=== PATIENT | male | born 1965 | race Caucasian/White ===

== ENCOUNTER 2017-05-24 08:51 | Day surgery (SDC) | payer MEDICAID ==
[2017-05-23 09:48] LABS: BASOPHILS # (AUTO) 0.1 X10'3 (0-0.2); BASOPHILS % (AUTO) 0.6 % (0-1); EOSINOPHILS # (AUTO) 0.2 X10'3 (0-0.9); EOSINOPHILS % (AUTO) 2.4 % (0-6); HEMATOCRIT 40.7 % (42.0-52.0); HEMOGLOBIN 14.1 g/dl (14.0-17.9); LYMPHOCYTES # (AUTO) 1.5 X10'3 (1.1-4.8); LYMPHOCYTES % (AUTO) 16.7 % (21-51); MEAN CORPUSCULAR HEMOGLOBIN 29.9 PG (27.0-31.0); MEAN CORPUSCULAR HGB CONC 34.5 % (33.0-36.5); MEAN CORPUSCULAR VOLUME 86.6 FL (78-98); MEAN PLATELET VOLUME 7.8 FL (7.4-10.4); MONOCYTES # (AUTO) 0.6 X10'3 (0-0.9); MONOCYTES % (AUTO) 6.7 % (2-12); NEUTROPHILS # (AUTO) 6.8 X10'3 (1.8-7.7); NEUTROPHILS % (AUTO) 73.6 % (42-75); PLATELET COUNT 216 X10'3 (140-440); RED CELL DISTRIBUTION WIDTH 16.2 % (11.5-14.5); WHITE BLOOD COUNT 9.2 X10'3 (4.5-11.0)
[2017-05-23 10:01] LABS: PARTIAL THROMBOPLASTIN TIME 26 SECONDS (22-32); PROTHROMBIN TIME 10.5 SECONDS (9.0-12.0)
[2017-05-23 10:06] LABS: ALANINE AMINOTRANSFERASE 42 U/L (12-78); ALBUMIN 3.7 G/DL (3.4-5.0); ALKALINE PHOSPHATASE 84 IU/L (46-116); ANION GAP 8 (8-16); ASPARTATE AMINO TRANSFERASE 25 U/L (10-37); BILIRUBIN,TOTAL 0.5 MG/DL (0.1-1.0); BLOOD UREA NITROGEN 18 MG/DL (7-18); BUN/CREATININE RATIO 15.5 (5.4-32.0); CALCIUM 8.8 MG/DL (8.5-10.1); CHLORIDE 102 MMOL/L (99-107); CREATININE 1.16 MG/DL (0.60-1.10); GLUCOSE 155 MG/DL (70-104); SODIUM 138 MMOL/L (135-145); TOTAL CARBON DIOXIDE 27.7 MMOL/L (24-32); TOTAL PROTEIN 7.5 G/DL (6.4-8.2); eGFR 66 ML/MIN
[2017-05-24] VITALS (12 sets, daily range): BP systolic 105–160; BP diastolic 69–92
[~2017-05-24] VITALS: Ht 177.8 cm; Wt 112.9 kg
[~2017-05-24 08:51] MED LIST: ATOR20TA66 PO; DILT180C95 PO; FENOFIBRATE PO; IBUP-1984 PO; OMEP20TA5 PO; PRAZOSIN; RISP2TAB97 PO; TRAZ-143 PO; VENL75CA55 PO
[2017-05-24] MEDS ORDERED: LORazepam 0.5 MG tablet PO PRN (09:15)
[2017-05-24] MEDS ORDERED: diphenhydrAMINE 25mg capsule PO PRN (09:15)
[2017-05-24] MEDS ORDERED: methylPREDNISolone sod succ 125mg/2ml vial IV ONE (09:15)
[2017-05-24] MEDS ORDERED: normal saline 1000ml 1,000 ML IV SCH (09:15)
[2017-05-24] MEDS ORDERED: nitroGLYCERIN 0.4mg SUBLingual tab SL PRN (09:15)
[2017-05-24] MEDS ORDERED: PRAZ1CAP5 PO (10:47)
[2017-05-24] MEDS ORDERED: FENO200C PO (10:52)
[2017-05-24] MEDS ORDERED: BUPR150T8 PO (10:52)
[2017-05-24] MEDS ORDERED: OMEP40CA37 PO (10:52)
[2017-05-24] MEDS ORDERED: POTA10TA19 PO (10:52)
[2017-05-24] MEDS ORDERED: EPIN0.3P8 IM (10:52)
[2017-05-24] MEDS ORDERED: FURO-150 PO (10:52)
[2017-05-24] MEDS ORDERED: PRE5T PO (10:52)
[2017-05-24] MEDS ORDERED: fentaNYL/PF 50MCG/1 ML 2ML syringe ONE (13:58)
[2017-05-24] MEDS ORDERED: midazolam 2 mg/2 ml injection ONE (13:58)
[2017-05-24] MEDS ORDERED: iohexol 350MG/ML 100ml bottle IV ONE (13:59)
[2017-05-24] MEDS ORDERED: iohexol 350 MG/ML 50ML vial IV ONE (13:59)
[2017-05-24] MEDS ORDERED: LIDOcaine 1%/PF (10mg/ml) 5ml vial ONE (13:59)
[2017-05-24] MEDS ORDERED: proCHLORperazine 10 MG/2 ml inj ONE (14:22)
[2017-05-24] MEDS ORDERED: HYDROmorphone 1 mg/ml syringe ONE (14:30)
[2017-05-24] MEDS ORDERED: HYDROcodone/acetaminophen 10/325mg tab PO PRN (16:00)
[2017-05-24] MEDS ORDERED: proCHLORperazine 10 MG/2 ml inj IV PRN (16:00)
[2017-05-24] MEDS ORDERED: OXAZEpam 15mg capsule PO PRN (16:00)
[2017-05-24] MEDS ORDERED: acetaminophen 325mg tablet PO PRN (16:00)
[2017-05-24] MEDS ORDERED: ondansetron/PF 4mg/2ml inj IV PRN (16:00)
[2017-05-24] MEDS ORDERED: HYDROcodone/acetaminophen 5mg/325mg tablet PO PRN (16:00)
== END 2017-05-24 20:00 | disposition home or self-care (01) ==
LOC: SSTAY O 08:51
PROVIDERS: ATTEND Internal Medicine Cardiovascular Disease
DX: I25.118 Atherosclerotic heart disease of native coronary artery with other forms of angina pectoris (principal); I10 Essential (primary) hypertension; E78.5 Hyperlipidemia, unspecified; J98.4 Other disorders of lung; F32.9 Major depressive disorder, single episode, unspecified; G89.4 Chronic pain syndrome; F17.210 Nicotine dependence, cigarettes, uncomplicated; K21.9 Gastro-esophageal reflux disease without esophagitis; Z90.89 Acquired absence of other organs; Z72.89 Other problems related to lifestyle; Z79.1 Long term (current) use of non-steroidal anti-inflammatories (NSAID); Z79.899 Other long term (current) drug therapy; Z91.013 Allergy to seafood; Z91.048 Other nonmedicinal substance allergy status; Z88.1 Allergy status to other antibiotic agents; Z88.8 Allergy status to other drugs, medicaments and biological substances
CPT/HCPCS: 36415; 71046; 80053; 85025; 85610; 85730; 93458; 99152; 99153; C1760; C1769; J0780; J1170; J2001; J2250; J2930; J3010; J7030; Q0163; Q9967; A4620

== ENCOUNTER 2018-03-08 16:59 | Emergency (ER) | payer MEDICAID ==
[~2018-03-08] VITALS: Ht 177.8 cm; Wt 111.0 kg
[~2018-03-08 16:59] MED LIST changes: +BUPR150T8 PO; +EPIN0.3P8 IM; +FENO200C PO; -FENOFIBRATE PO; +FURO-150 PO; +OMEP40CA37 PO; +POTA10TA19 PO; +PRAZ1CAP5 PO; -PRAZOSIN; +PRE5T PO; -RISP2TAB97 PO; -TRAZ-143 PO; +TRAZ-218 PO; -VENL75CA55 PO
[2018-03-08] MEDS ORDERED: normal saline 1000ML IV soln IVB ONE ×2 (17:55→21:40)
[2018-03-08 18:30] LABS: BASOPHILS # (AUTO) 0.1 X10'3 (0-0.2); BASOPHILS % (AUTO) 0.3 % (0-1); EOSINOPHILS # (AUTO) 0.4 X10'3 (0-0.9); EOSINOPHILS % (AUTO) 2.1 % (0-6); HEMOGLOBIN 14.6 g/dl (14.0-17.9); LYMPHOCYTES # (AUTO) 0.7 X10'3 (1.1-4.8); LYMPHOCYTES % (AUTO) 3.4 % (21-51); MEAN CORPUSCULAR HEMOGLOBIN 29.4 PG (27.0-31.0); MEAN CORPUSCULAR HGB CONC 32.4 % (33.0-36.5); MEAN CORPUSCULAR VOLUME 90.8 FL (78-98); MEAN PLATELET VOLUME 7.5 FL (7.4-10.4); MONOCYTES # (AUTO) 0.9 X10'3 (0-0.9); MONOCYTES % (AUTO) 4.4 % (2-12); NEUTROPHILS # (AUTO) 18.9 X10'3 (1.8-7.7); NEUTROPHILS % (AUTO) 89.8 % (42-75); PLATELET COUNT 263 X10'3 (140-440); RED BLOOD COUNT 4.96 X10'6 (4.70-6.10); RED CELL DISTRIBUTION WIDTH 14.3 % (11.5-14.5); WHITE BLOOD COUNT 21.1 X10'3 (4.5-11.0)
[2018-03-08 18:53] LABS: ALANINE AMINOTRANSFERASE 38 U/L (12-78); ALBUMIN 3.5 G/DL (3.4-5.0); ALBUMIN/GLOBULIN RATIO 0.8 (1.1-1.5); ALKALINE PHOSPHATASE 83 IU/L (46-116); ANION GAP 15 (8-16); ASPARTATE AMINO TRANSFERASE 38 U/L (10-37); BILIRUBIN,TOTAL 0.3 MG/DL (0.1-1.0); BLOOD UREA NITROGEN 9 MG/DL (7-18); BUN/CREATININE RATIO 9.3 (5.4-32.0); CALCIUM 8.5 MG/DL (8.5-10.1); CHLORIDE 101 MMOL/L (99-107); CREATININE 0.97 MG/DL (0.60-1.10); ETHANOL 0.131 GM/DL (0.0-0.010); GLUCOSE 119 MG/DL (70-104); POTASSIUM 3.4 MMOL/L (3.5-5.1); SODIUM 138 MMOL/L (135-145); TOTAL CARBON DIOXIDE 22.3 MMOL/L (24-32); TOTAL PROTEIN 7.8 G/DL (6.4-8.2); eGFR 81 ML/MIN
[2018-03-08 22:13] LABS: LIPASE 140 U/L (73-393)
[2018-03-08 23:33] LABS: CLARITY,URINE CLEAR (Clear); COLOR,URINE YELLOW (Yellow); GLUCOSE, URINE NEGATIVE (Neg); KETONES,URINE NEGATIVE (Neg); LEUKOCYTE ESTERASE ,URINE NEGATIVE (Neg); NITRITES, URINE NEGATIVE (Neg); OCCULT BLOOD,URINE LARGE (Neg); PROTEIN,URINE NEGATIVE (Neg); UROBILINOGEN,URINE 0.2 E.U/dL (0.2-1.0)
[2018-03-08 23:35] LABS: UA COLLECTION TYPE URINAL
[2018-03-08 23:40] LABS: SQUAMOUS EPITHELIAL CELL,UR MODERATE /LPF (FEW)
[2018-03-08 23:41] LABS: BACTERIA,URINE FEW /HPF (Neg); MUCUS STRANDS MODERATE /LPF (Neg); RBC,URINE 50-100 /HPF (0-2); WBC,URINE 0-4 /HPF (0-4)
[2018-03-08 23:44] LABS: URINE AMPHETAMINE SCREEN NEGATIVE (Neg); URINE BARBITUATE SCREEN NEGATIVE (Neg); URINE BENZODIAZEPINES SCREEN POSITIVE (Neg); URINE CANNABINOID SCREEN NEGATIVE (Neg); URINE COCAINE SCREEN NEGATIVE (Neg); URINE METHADONE SCREEN NEGATIVE (Neg); URINE OPIATE SCREEN NEGATIVE (Neg); URINE PHENCYCLIDINE SCREEN NEGATIVE (Neg)
[2018-03-09 00:08] LABS: BASOPHILS # (AUTO) 0.1 X10'3 (0-0.2); BASOPHILS % (AUTO) 0.9 % (0-1); EOSINOPHILS # (AUTO) 0.2 X10'3 (0-0.9); EOSINOPHILS % (AUTO) 1.4 % (0-6); HEMATOCRIT 39.2 % (42.0-52.0); HEMOGLOBIN 12.8 g/dl (14.0-17.9); LYMPHOCYTES # (AUTO) 1.3 X10'3 (1.1-4.8); MEAN CORPUSCULAR HEMOGLOBIN 29.4 PG (27.0-31.0); MEAN CORPUSCULAR HGB CONC 32.6 % (33.0-36.5); MEAN PLATELET VOLUME 7.4 FL (7.4-10.4); MONOCYTES # (AUTO) 0.9 X10'3 (0-0.9); MONOCYTES % (AUTO) 7.4 % (2-12); NEUTROPHILS # (AUTO) 9.1 X10'3 (1.8-7.7); NEUTROPHILS % (AUTO) 79.3 % (42-75); PLATELET COUNT 228 X10'3 (140-440); RED BLOOD COUNT 4.35 X10'6 (4.70-6.10); RED CELL DISTRIBUTION WIDTH 14.1 % (11.5-14.5); WHITE BLOOD COUNT 11.5 X10'3 (4.5-11.0)
[2018-03-09] MEDS ORDERED: CLON-371 PO (08:18)
[2018-03-09] MEDS ORDERED: GABA-532 PO (08:18)
[2018-03-09] MEDS ORDERED: NALT50TA PO (08:18)
[2018-03-09] MEDS ORDERED: epiNEPHrine 1 mg/ml inj SQ PRN (13:00)
[2018-03-09] MEDS ORDERED: nicotine 21mg patch - 24 hr TD ONE (18:00)
[2018-03-09] MEDS: NALTREXONE 50 MG PO SCH (21:00)
[2018-03-09] MEDS: traZODone 50mg tablet PO SCH (21:20)
[2018-03-09] MEDS: buPROPion SR 150mg tablet PO SCH (21:32)
[2018-03-09] MEDS: prazosin 1mg capsule PO SCH (21:32)
[2018-03-09] MEDS: clonazePAM 1mg tablet PO PRN (21:36)
[2018-03-10] MEDS: ibuprofen tablet 400 MG TABLET PO PRN ×3 (02:48→17:06)
[2018-03-10] MEDS ORDERED: non-formulary drug (Potassium Chloride (Klor-Con) 1 TAB) PO SCH (08:00)
[2018-03-10] MEDS: pantoprazole 40mg Tablet.DR PO SCH (09:02)
[2018-03-10] MEDS: potassium chloride 10mEq ER tablet PO SCH (09:03)
[2018-03-10] MEDS: diltiazem CD 120mg capsule (once-daily) PO SCH (09:03)
[2018-03-10] MEDS: fenofibrate 145mg tablet PO SCH (09:03)
[2018-03-10] MEDS: furosemide 20MG tablet PO SCH (09:03)
[2018-03-10] MEDS: buPROPion SR 150mg tablet PO SCH ×2 (09:03→20:41)
[2018-03-10] MEDS: atorvastatin 20mg tablet PO SCH (09:04)
[2018-03-10] MEDS: clonazePAM 1mg tablet PO PRN ×2 (09:08→20:47)
[2018-03-10] MEDS ORDERED: nicotine 21mg patch - 24 hr TD ONE (19:50)
[2018-03-10] MEDS: traZODone 50mg tablet PO SCH (20:42)
[2018-03-10] MEDS: prazosin 1mg capsule PO SCH (20:43)
[2018-03-10] MEDS: NALTREXONE 50 MG PO SCH (21:00)
[2018-03-11] MEDS: polyethylene glycol 3350 17gm powd pack PO PRN ×2 (04:03→11:29)
[2018-03-11 05:15] VITALS: BP 124/76
[2018-03-11] MEDS: diltiazem CD 120mg capsule (once-daily) PO SCH (08:23)
[2018-03-11] MEDS: buPROPion SR 150mg tablet PO SCH (08:23)
[2018-03-11] MEDS: furosemide 20MG tablet PO SCH (08:23)
[2018-03-11] MEDS: potassium chloride 10mEq ER tablet PO SCH (08:23)
[2018-03-11] MEDS: pantoprazole 40mg Tablet.DR PO SCH (08:23)
[2018-03-11] MEDS: atorvastatin 20mg tablet PO SCH (08:24)
[2018-03-11] MEDS: clonazePAM 1mg tablet PO PRN (08:24)
[2018-03-11] MEDS: ibuprofen tablet 400 MG TABLET PO PRN ×2 (08:24→14:24)
[2018-03-11] MEDS: fenofibrate 145mg tablet PO SCH (09:46)
[2018-03-11] MEDS ORDERED: BUPR300T53 PO (17:55)
== END 2018-03-11 16:41 ==
LOC: ER 17:00
DX: R45.851 Suicidal ideations (principal); Z91.013 Allergy to seafood; Z91.038 Other insect allergy status; Z88.1 Allergy status to other antibiotic agents; Z88.8 Allergy status to other drugs, medicaments and biological substances; Z79.899 Other long term (current) drug therapy
CPT/HCPCS: 36415; 71045; 80053; 80305; 80320; 81001; 83690; 84443; 85025; 99285; J7030